=== PATIENT | male | born 1940 | race Two or more races ===

== ENCOUNTER 2019-05-24 22:09 | Emergency (ER) | payer MEDICARE ==
[2019-05-24 22:17] VITALS: RESP 18
[2019-05-24] MEDS ORDERED: LIDOCAINE 1% INJ 10MG/ML (20 ML MDV) SQ ONE (22:49)
--- NOTE | 2019-05-24 23:00 | CT ---
EXAMINATION TYPE: CT brain cruz bañuelos DATE OF EXAM: 05/24/2019 COMPARISON: None HISTORY: fall Headache. Neck pain. CT DLP: 813.5 mGycm Automated exposure control for dose reduction was used. TECHNIQUE: CT scan of the head and cervical spine are performed without contrast. FINDINGS: There is mild hypodensity in the periventricular white matter. Ventricles have normal siz e. There is no mass effect nor midline shift. There is no sign of intracranial hemorrhage. The calvar ium is intact. Skull base is intact. Cervical vertebra have fairly normal alignment. There is mild degenerative disc space narrowing at C3 -C4 and C5-6 and C6-7. Facet joints are intact. There is no evidence of a fracture. I see no bony krystle tructive process. IMPRESSION: There is evidence for some chronic small vessel ischemia. No acute intracranial abnormality. Spondylotic changes in the cervical spine. No fracture seen.
--- NOTE | 2019-05-24 23:02 | CT ---
EXAMINATION TYPE: CT facial bones wo con DATE OF EXAM: 05/24/2019 COMPARISON: None HISTORY: fall CT DLP: 416.1 mGycm Automated exposure control for dose reduction was used. TECHNIQUE: CT scan of the sinuses is performed without contrast, axial images are obtained, coronal r eformatted images are also reviewed. FINDINGS: The mandibular ring is intact. Temporomandibular joints appear normal. The maxilla is intac t. There is no evidence of a blowout fracture. Orbital margins are intact. There is small mucosal thi ckening in the maxillary sinuses. Zygomatic arches appear normal. Nasal bone is intact. There is no e vidence of orbital mass. There is no evidence of bony destructive process. There is normal aeration o f the mastoid air cells. Temporal bones are intact. There is normal aeration of the epitympanic reces s bilaterally. IMPRESSION: No fracture. Small mucus retention cyst in the maxillary sinuses. No evidence of traumati c injury.
--- NOTE | 2019-05-24 23:04 | ED ---
Wound/Laceration HPI <Ronald Powell - Last Filed: 05/25/19 00:37> - General Source: patient, EMS Mode of arrival: EMS Limitations: no limitations <Rita Naranjo - Last Filed: 05/25/19 01:35> - General Chief Complaint: Wound/Laceration Stated Complaint: fall Time Seen by Provider: 05/24/19 22:25 - History of Present Illness Initial Comments: Patient is a 78-year-old male presenting to the emergency Department with complaints of a laceration to his right ear. Patient had been drinking all day prior to injury. Patient states he tripped over something in his yard and fell hitting his right ear on his grill. Patient was bleeding significantly from the wound prior to arrival. Bleeding is controlled at this time. Patient denies being on a blood thinner. Patient's tetanus vaccine is up-to-date. Patient denies having a headache, dizziness, nausea, vomiting. Patient denies LOC. Patient denies having neck pain or facial pain. Upon arrival to ER, vital signs are stable. (Rita Naranjo) - Related Data Home Medications Medication Instructions Recorded Confirmed Ascorbic Acid [Vitamin C] 500 mg PO DAILY 05/24/19 05/24/19 Aspirin EC [Ecotrin] 325 mg PO DAILY 05/24/19 05/24/19 Cholecalciferol [Vitamin D3 (25 1,000 unit PO DAILY 05/24/19 05/24/19 Mcg = 1000 Iu)] Multivitamins, Thera [Multivitamin 1 tab PO DAILY 05/24/19 05/24/19 (formulary)] Vitamin B Complex 1 cap PO DAILY 05/24/19 05/24/19 Vitamin E (Dl,Tocopheryl Acet) 400 unit PO DAILY 05/24/19 05/24/19 [Vitamin E] Previous Rx's Medication Instructions Recorded Cephalexin [Keflex] 500 mg PO BID 5 Days #10 cap 05/25/19 Allergies Allergy/AdvReac Type Severity Reaction Status Date / Time No Known Allergies Allergy Verified 05/24/19 22:33 Review of Systems ROS Other: All systems not noted in ROS Statement are negative. <Ronald Powell - Last Filed: 05/25/19 00:37> ROS Other: All systems not noted in ROS Statement are negative. <Rita Naranjo - Last Filed: 05/25/19 01:35> ROS Statement: Those systems with pertinent positive or pertinent negative responses have been documented in the HPI. Past Medical History Past Medical History: No Reported History History of Any Multi-Drug Resistant Organisms: None Reported Past Surgical History: No Surgical Hx Reported Past Psychological History: Depression Smoking Status: Current every day smoker Past Alcohol Use History: Occasional Past Drug Use History: None Reported <Rita Naranjo - Last Filed: 05/25/19 01:35> General Exam Limitations: no limitations <Rita Naranjo - Last Filed: 05/25/19 01:35> - General Exam Comments Initial Comments: GENERAL: Patient appears slightly disheveled, intoxicated. HEAD: Atraumatic, normocephalic. No pain with palpation EYES: Pupils equal round and reactive to light, extraocular movements intact, sclera anicteric, conjunctiva are normal. ENT: TMs normal, nares patent, oropharynx clear without exudates. Moist mucous membranes. NECK: Normal range of motion, supple without lymphadenopathy or JVD. LUNGS: Breath sounds clear to auscultation bilaterally and equal. No wheezes rales or rhonchi. HEART: Regular rate and rhythm without murmurs, rubs or gallops. ABDOMEN: Soft, nontender, normoactive bowel sounds. No guarding, no rebound. No masses appreciated. : Deferred EXTREMITIES: Normal range of motion, no pitting or edema. No clubbing or cyanosis. NEUROLOGICAL: Cranial nerves II through XII grossly intact. Normal speech, normal gait. PSYCH: Normal mood, normal affect. SKIN: Warm, Dry, normal turgor, no rashes. Patient has a large, complex flap laceration to the right upper ear, U shaped. Measurements are 2 cm x 2 cm x 1 cm. Bleeding is controlled at this time. (Rita Naranjo) Course Vital Signs 05/24/19 22:12 Temperature 97.7 F Pulse Rate 63 Respiratory 18 Rate Blood Pressure 141/84 O2 Sat by Pulse 96 Oximetry Procedures - Laceration Laceration #1 Consent Obtained: verbal consent Indication: laceration Site: other (Right upper ear) Size (cm): 5 (2cm x 2cm x 1 cm) Description: flap, irregular Depth: simple, single layer Anesthetic Used: lidocaine 1% Anesthesia Technique: local infiltration Amount (mls): 6 Pre-repair: irrigated extensively Type of Sutures: nylon Size of Sutures: 6-0 Number of Sutures: 19 Technique: simple, interrupted Patient Tolerated Procedure: well <Rita Naranjo - Last Filed: 05/25/19 01:35> - Laceration Laceration #1 Additional Comments: Patient had a complex flap laceration to the upper ear, inner layer. Sutures took approximately 90 minutes with having to readjust a few sutures. Total sutures was 19. (Rita Naranjo) Medical Decision Making <Ronald Powell - Last Filed: 05/25/19 00:37> <Rita Naranjo - Last Filed: 05/25/19 01:35> - Medical Decision Making I did evaluate patient and will room. I did assist with the more complicated parts of suture repair. (Ronald Powell) Patient is a 78-year-old male presenting with a large complex laceration to the upper right ear, inner layer, measuring approximately 5 cm total. Patient is intoxicated and tripped and fell into his grill. Patient is denying headache, neck pain, chest pain, abdominal pain. CT of the brain, C-spine, facial bones are all within normal limits. No acute fractures or bleeding. Wound was irrigated extensively, and repaired with 19, 6-[address] Powell did assist with suture repair. Patient tolerated procedure well. A pressure dressing was applied to the right ear. Tetanus is up-to-date. Patient is stable for discharge at this time. Patient will be started on antibiotics and will follow up with ENT. Patient is in agreement with this plan of care. Patient's will be picking him up from the ER. Return parameters were discussed with the patient he verbalizes understanding. (Rita Naranjo) Disposition <Ronald Powell - Last Filed: 05/25/19 00:37> Is patient prescribed a controlled substance at d/c from ED?: No <Rita Naranjo - Last Filed: 05/25/19 01:35> Clinical Impression: Laceration of right external ear Disposition: HOME SELF-CARE Condition: Stable Instructions (If sedation given, give patient instructions): Care For Your Stitches (ED), Laceration (ED) Additional Instructions: Please return to the Emergency Department if symptoms worsen or any other concerns. Follow-up with ENT as discussed tomorrow. Take antibiotics as prescribed. Stitches need to be removed in approximately 7 days. Prescriptions: Cephalexin [Keflex] 500 mg PO BID 5 Days #10 cap Referrals: Aquiles Lares MD [REFERRING] - 1-2 days Jersey Colvin DO [Doctor of Osteopathic Medicine] - 1-2 days
[2019-05-25 03:08] VITALS: BP 116/79; PULSE 58; TEMP 97.8
== END 2019-05-25 01:22 | disposition home or self-care (01) ==
LOC: EC 22:09
DX: S01.311A Laceration without foreign body of right ear, initial encounter (principal); F10.129 Alcohol abuse with intoxication, unspecified; F17.200 Nicotine dependence, unspecified, uncomplicated; W01.198A Fall on same level from slipping, tripping and stumbling with subsequent striking against other object, initial encounter; Y92.096 Garden or yard of other non-institutional residence as the place of occurrence of the external cause
CPT/HCPCS: 72125; 70486; 70450; 99284; 13152; J2001

== ENCOUNTER → 2020-07-15 | Outpatient (CLI) | payer MEDICARE ==
--- NOTE | 2020-07-15 11:07 | MR ---
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 TECHNIQUE: Multiplanar, multisequence images of the brain and brainstem is performed without and with IV contras t, utilizing 9 mL intravenous Gadavist . Acoustic nerve disorder protocol. FINDINGS: Diffusion weighted images demonstrate no evidence of a recent infarct or other diffusion ab normality. There is no worrisome extra-axial fluid collection. There is diffuse ventricular and sulc al prominence. There is focal and confluent areas of T2 hyperintensity seen throughout the white jessie er bilaterally. Midline structures demonstrate normal morphology. The craniocervical junction appears within normal limits. Normal vascular flow voids are present. The visualized sinuses are clear and the globes are i ntact. No suspicious fluid signal in the mastoid air cells bilaterally. The vestibulocochlear complexes are symmetric and within normal limits. There is no suspicious enhancing cerebellopontine angle mass iden tified bilaterally. IMPRESSION: 1. Background [id number] diffuse cerebral atrophy with advanced chronic small vessel ischemic c hange. 2. No suspicious findings seen to account for patient symptoms of left-sided hearing loss.
== END | disposition home or self-care (01) ==
LOC: RADMRIMAIN 07:40
PROVIDERS: ATTEND Otolaryngology
DX: G31.9 Degenerative disease of nervous system, unspecified (principal); I67.82 Cerebral ischemia
CPT/HCPCS: 70553; A9585